=== PATIENT | female | born 1955 | race Caucasian/White ===

== ENCOUNTER 2017-11-26 18:10 | Inpatient (IN) | payer MEDICARE ==
[~2017-11-26] VITALS: Wt 61.4 kg
[2017-11-26 19:02] LABS: BASO % 0.3 % (0.0-2.0); EOS # 0.2 (0.0-0.7); EOS % 1.1 % (0-4.0); GRAN # 13.2 (1.4-6.5); HEMOGLOBIN 12.2 g/dl (12.5-16.0); LYMPH # 1.3 (1.2-3.4); LYMPH % 7.9 % (20.0-51.0); MEAN CELL VOLUME 87 fl (80.0-100.0); MEAN CORPUSCULAR HEMOGLOBIN 30 pg (27.0-31.0); MEAN CORPUSCULAR HGB CONC 35 g/dl (33.0-37.0); MEAN PLATELET VOLUME 10.9 fl (7.4-10.4); MONO # 1.2 (0.1-0.6); MONO % 7.3 % (1.7-9.3); PLATELET COUNT 233 K/mm3 (130-400); RED BLOOD COUNT 4.01 M/mm3 (4.10-5.30)
[2017-11-26 19:11] LABS: HEMATOCRIT 34.9 % (37.0-47.0); PROTHROMBIN TIME 11.6 SECONDS (9.7-12.8)
[2017-11-26 19:17] LABS: ALANINE AMINOTRANSFERASE 21 U/L (9-52); ALBUMIN 4.5 gm/dL (3.5-5.0); ALKALINE PHOSPHATASE 115 U/L (50-136); ANION GAP 14 mmol/L (7-16); AST,SGOT 22 U/L (15-37); BILIRUBIN,TOTAL 0.8 mg/dL (0.0-1.0); BLOOD UREA NITROGEN 33 mg/dL (7-17); CALCIUM 9.2 mg/dL (8.4-10.2); CARBON DIOXIDE 20 mmol/L (22-30); CHLORIDE 99 mmol/L (98-107); CREATININE, serum 2.12 mg/dL (0.52-1.25); GLUCOSE 96 mg/dL (74-106); POTASSIUM 3.5 mmol/L (3.4-5.0); SODIUM 133 mmol/L (137-145); TOTAL PROTEIN 7.9 gm/dL (6.4-8.2)
[2017-11-26 19:29] LABS: TROPONIN-I < 0.012 ng/mL (0.000-0.034)
[2017-11-26] MEDS ORDERED: PROTONIX 40MG T40 MG PO (20:20)
[2017-11-26] MEDS ORDERED: PAXIL40 MG PO (20:20)
[2017-11-26] MEDS ORDERED: NORVASC 5MG5 MG/TAB PO (20:21)
[2017-11-26] MEDS ORDERED: LIPITOR 40MG TA40 MG PO (20:21)
[2017-11-26] MEDS ORDERED: APRESOLINE 25MG25 MG PO (20:21)
[2017-11-26] MEDS ORDERED: ASPIRIN 81M81 MG/TA2 PO (20:22)
[2017-11-26] MEDS ORDERED: TYLENOL W/COD1 UDTAB PO (20:24)
[2017-11-26 22:49] VITALS: BP 170/105; PULSE 93; TEMP 100.7
[2017-11-27 02:50] VITALS: BP 123/74; PULSE 92; TEMP 100.5
[2017-11-27 06:38] LABS: BASO % 0.2 % (0.0-2.0); EOS # 0.1 (0.0-0.7); EOS % 0.6 % (0-4.0); GRAN # 11.5 (1.4-6.5); GRAN % 80.5 % (42.2-75.2); HEMOGLOBIN 11.2 g/dl (12.5-16.0); LYMPH # 1.6 (1.2-3.4); LYMPH % 11.3 % (20.0-51.0); MEAN CELL VOLUME 89 fl (80.0-100.0); MEAN CORPUSCULAR HEMOGLOBIN 30 pg (27.0-31.0); MEAN CORPUSCULAR HGB CONC 34 g/dl (33.0-37.0); PLATELET COUNT 217 K/mm3 (130-400); RED BLOOD COUNT 3.73 M/mm3 (4.10-5.30); REDCELL DISTRIBUTION WIDTH-CV 12.1 % (11.5-14.5)
[2017-11-27 06:40] LABS: HEMATOCRIT 33.3 % (37.0-47.0)
[2017-11-27 06:53] LABS: CALCIUM 8.8 mg/dL (8.4-10.2); CREATININE, serum 2.22 mg/dL (0.52-1.25); POTASSIUM 3.5 mmol/L (3.4-5.0)
[2017-11-27 08:48] VITALS: BP 123/72; PULSE 81; TEMP 98.4
[2017-11-27 12:05] VITALS: BP 121/53; PULSE 76; TEMP 98.4
[2017-11-27 15:46] VITALS: BP 149/70; PULSE 82; TEMP 98.2
[2017-11-27 19:24] VITALS: BP 143/83; PULSE 77; TEMP 97.8
[2017-11-27 23:11] VITALS: BP 160/85; PULSE 73; TEMP 98.4
[2017-11-28 03:43] VITALS: BP 136/70; PULSE 77; TEMP 98.1
[2017-11-28 07:24] LABS: CALCIUM 9.2 mg/dL (8.4-10.2); CREATININE, serum 2.24 mg/dL (0.52-1.25); POTASSIUM 4.2 mmol/L (3.4-5.0)
[2017-11-28 08:03] VITALS: BP 144/64; PULSE 72; TEMP 97.9
[2017-11-28 08:12] LABS: HEMOGLOBIN 11.6 g/dl (12.5-16.0); MEAN CELL VOLUME 88 fl (80.0-100.0); MEAN CORPUSCULAR HEMOGLOBIN 30 pg (27.0-31.0); MEAN CORPUSCULAR HGB CONC 34 g/dl (33.0-37.0); MEAN PLATELET VOLUME 11.5 fl (7.4-10.4); PLATELET COUNT 234 K/mm3 (130-400); REDCELL DISTRIBUTION WIDTH-CV 12.1 % (11.5-14.5)
[2017-11-28 08:14] LABS: HEMATOCRIT 34.4 % (37.0-47.0)
[2017-11-28 08:48] LABS: BAND 10 % (0-10); LYMPHOCYTE 7 % (20.0-51.0); NEUTROPHILS 82 % (42.0-75.2)
[2017-11-28 08:50] LABS: PLATELET ESTIMATE NORMAL (NORMAL)
[2017-11-28 08:52] LABS: BURR CELLS 1+
[2017-11-28 11:41] VITALS: BP 146/69; PULSE 78; TEMP 97.8
[2017-11-28 15:53] VITALS: BP 138/81; PULSE 85; TEMP 98.2
== END 2017-11-28 16:34 | disposition home or self-care (01) | DRG 194 ==
LOC: COL.ER 18:10 → MEDICAL 19:43
PROVIDERS: Emergency Medicine; Internal Medicine Nephrology
DX: J18.9 Pneumonia, unspecified organism (principal); J44.0 Chronic obstructive pulmonary disease with (acute) lower respiratory infection; N18.4 Chronic kidney disease, stage 4 (severe); J44.1 Chronic obstructive pulmonary disease with (acute) exacerbation; I12.9 Hypertensive chronic kidney disease with stage 1 through stage 4 chronic kidney disease, or unspecified chronic kidney disease; E11.22 Type 2 diabetes mellitus with diabetic chronic kidney disease; F17.210 Nicotine dependence, cigarettes, uncomplicated; I70.1 Atherosclerosis of renal artery; I48.2 Chronic atrial fibrillation
CPT/HCPCS: OP; J0456; J0696; J1956; J2405; J2920; J7030; J7050

== ENCOUNTER → 2017-12-31 | Outpatient (CLI) | payer MEDICARE ==
[~2017-12-31] MED LIST: APRESOLINE 25MG25 MG PO; ASPIRIN 81M81 MG/TA2 PO; LIPITOR 40MG TA40 MG PO; NORVASC 5MG5 MG/TAB PO; PAXIL40 MG PO; PROTONIX 40MG T40 MG PO; TYLENOL W/COD1 UDTAB PO
== END ==
LOC: MC.RAD 10:00
DX: R92.0 Mammographic microcalcification found on diagnostic imaging of breast (principal); Z98.82 Breast implant status

== ENCOUNTER 2019-09-08 06:13 | Day surgery (SDC) | payer MEDICARE, OTHER ==
[2019-09-08] VITALS (7 sets, daily range): BP systolic 95–148; BP diastolic 51–78; PULSE 54–64; TEMP 97.4–97.8
[~2019-09-08] VITALS: Ht 165.1 cm; Wt 70.1 kg
[2019-09-08] MEDS ORDERED: TOPROL XL100 MG PO (07:15)
[2019-09-08] MEDS ORDERED: ZOLOFT 100MG100 MG PO (07:17)
[2019-09-08] MEDS ORDERED: KLONOPIN 0.5MG0.5 MG PO (07:18)
[2019-09-08] MEDS ORDERED: CEPHALEXIN500 M1 PO (07:20)
--- NOTE | 2019-09-08 09:08 | NUR ---
PATIENT BROUGHT BACK TO BAY 6 ACCOMPANIED BY OR STAFF. PATIENT TALKING WITH STAFF BUT STATES THAT SHE IS DROWSY. MONITORS APPLIED. PATIENT ON ROOM AIR. VSS. VERBAL REPORT RECEIVED.
--- NOTE | 2019-09-08 09:16 | NUR ---
BLOOD PRESSURE DECREASED TO 95/63. PATIENT CLOSES EYES BUT DOES AWAKE AND TALK WITH SPOKEN TO. WILL CONTINUE TO MONITOR VITALS. PATIENT GIVEN COFFEE TO DRINK. DENIES DISCOMFORT AND NAUSEA.
--- NOTE | 2019-09-08 09:30 | NUR ---
VSS. PATIENT GIVEN MUFFIN TO EAT. CONTINUES TO DENY DISCOMFORT AND NAUSEA.
--- NOTE | 2019-09-08 09:46 | NUR ---
VSS. NO PROBLEMS WITH EATING MUFFING. NO NAUSEA OR DISCOMFORT. INCISION TO RIGHT HIP CLEAN, DRY AND INTACT. HECTOR SET INTACT.
--- NOTE | 2019-09-08 10:10 | NUR ---
VSS. PATIENT AMBULATES TO BATHROOM WITH STEADY GAIT. PATIENT VOIDS WITHOUT PROBLEMS. PATIENT DENIES PROBLEMS. PATIENT'S SISTER CALLED AND UPDATED ON PATIENT STATUS AND IS DRIVING TO PICKUP PATIENT.
--- NOTE | 2019-09-08 10:45 | NUR ---
VSS. IV SITE DC'D INTACT AND PRESSURE APPLIED. PATIENT CHANGED TO STREET [facility]. DISCHARGE INSTRUCTIONS GIVEN VERBALLAY AND WRITTEN. DISCHARGE PACKET PROVIDED. QUESTIONS ANSWERED AND PATIENT VOICED UNDERSTANDING. PATIENT GIVEN [employer] INFORMATION AND BOX. PATIENT INSTRUCTED OF REP PHONE NUMBER IN SIDE LID OF BOX. [id number] DISCHARGED PER W/C TO [facility]. PATIENT'S SISTER DRIVING.
== END 2019-09-08 10:50 | disposition home or self-care (01) ==
LOC: SDCO 06:13
DX: R32 Unspecified urinary incontinence (principal); R39.15 Urgency of urination; R35.0 Frequency of micturition; E11.22 Type 2 diabetes mellitus with diabetic chronic kidney disease; I12.9 Hypertensive chronic kidney disease with stage 1 through stage 4 chronic kidney disease, or unspecified chronic kidney disease; N18.4 Chronic kidney disease, stage 4 (severe); Z92.89 Personal history of other medical treatment; E78.00 Pure hypercholesterolemia, unspecified; I70.1 Atherosclerosis of renal artery; J44.9 Chronic obstructive pulmonary disease, unspecified; F32.9 Major depressive disorder, single episode, unspecified; F41.9 Anxiety disorder, unspecified; F17.210 Nicotine dependence, cigarettes, uncomplicated; Z79.82 Long term (current) use of aspirin; Z79.899 Other long term (current) drug therapy; Z86.73 Personal history of transient ischemic attack (TIA), and cerebral infarction without residual deficits; Z80.1 Family history of malignant neoplasm of trachea, bronchus and lung; Z80.0 Family history of malignant neoplasm of digestive organs; Z88.1 Allergy status to other antibiotic agents; Z88.8 Allergy status to other drugs, medicaments and biological substances; Z96.0 Presence of urogenital implants
CPT/HCPCS: C1767; C1778; C1787; C1894; J0690; J2405; J2704; J3010; J7030

== ENCOUNTER 2019-11-12 07:15 | Day surgery (SDC) | payer MEDICARE, OTHER ==
[~2019-11-12] VITALS: Ht 165.1 cm; Wt 70.5 kg
[~2019-11-12 07:15] MED LIST changes: +CEPHALEXIN500 M1 PO; +KLONOPIN 0.5MG0.5 MG PO; +TOPROL XL100 MG PO; +ZOLOFT 100MG100 MG PO
[2019-11-12 07:49] VITALS: BP 183/86; PULSE 54; TEMP 97.4
[2019-11-12] MEDS ORDERED: ASPIRIN 32325 MG/TAB PO (08:19)
[2019-11-12 08:45] VITALS: BP 137/100; PULSE 62; TEMP 98.2
[2019-11-12 09:00] VITALS: BP 141/72; PULSE 55
[2019-11-12 09:15] VITALS: BP 137/85; PULSE 54
== END 2019-11-12 09:55 | disposition home or self-care (01) ==
LOC: SDCO 07:15
DX: K22.2 Esophageal obstruction (principal); K21.0 Gastro-esophageal reflux disease with esophagitis; K44.9 Diaphragmatic hernia without obstruction or gangrene; L44.0 Pityriasis rubra pilaris; E11.22 Type 2 diabetes mellitus with diabetic chronic kidney disease; I12.9 Hypertensive chronic kidney disease with stage 1 through stage 4 chronic kidney disease, or unspecified chronic kidney disease; N18.4 Chronic kidney disease, stage 4 (severe); J44.9 Chronic obstructive pulmonary disease, unspecified; I48.91 Unspecified atrial fibrillation; F41.9 Anxiety disorder, unspecified; F32.9 Major depressive disorder, single episode, unspecified; Z86.73 Personal history of transient ischemic attack (TIA), and cerebral infarction without residual deficits; F17.210 Nicotine dependence, cigarettes, uncomplicated; Z88.8 Allergy status to other drugs, medicaments and biological substances; Z79.82 Long term (current) use of aspirin; Z79.899 Other long term (current) drug therapy; Z88.1 Allergy status to other antibiotic agents; Z96.89 Presence of other specified functional implants; Z90.710 Acquired absence of both cervix and uterus; Z91.048 Other nonmedicinal substance allergy status; Z80.0 Family history of malignant neoplasm of digestive organs
CPT/HCPCS: C1726; J2704; J7030

== ENCOUNTER → 2020-06-23 | Outpatient (CLI) | payer MEDICARE, OTHER ==
[~2020-06-23] MED LIST changes: +ASPIRIN 32325 MG/TAB PO; +KLONOPIN 1MG1 MG PO; +ROXICODONE 55 MG/TAB PO
== END ==
LOC: COL.RAD 13:30
DX: M47.816 Spondylosis without myelopathy or radiculopathy, lumbar region (principal); M48.061 Spinal stenosis, lumbar region without neurogenic claudication; M51.36 Other intervertebral disc degeneration, lumbar region

== ENCOUNTER 2020-09-06 12:44 | Outpatient (CLI) | payer MEDICARE, OTHER ==
[~2020-09-06] VITALS: Ht 165.1 cm; Wt 71.5 kg
[~2020-09-06 12:44] MED LIST changes: -ROXICODONE 55 MG/TAB PO
[2020-09-06] MEDS ORDERED: ROXICODONE 55 MG/TAB PO (12:59)
[2020-09-06 13:00] VITALS: BP 189/92; PULSE 55
[2020-09-06 14:30] VITALS: BP 170/89; PULSE 62
[2020-09-06 14:45] VITALS: BP 157/80; PULSE 62
[2020-09-06 15:00] VITALS: BP 155/80; PULSE 60
[2020-09-06 15:15] VITALS: BP 163/91; PULSE 62
[2020-09-06 15:30] VITALS: BP 157/90; PULSE 63
--- NOTE | 2020-09-06 15:58 | NUR ---
Discharge instructions given to pt.Pt verbalizes understanding.
--- NOTE | 2020-09-06 16:22 | NUR ---
Pt escorted out via wheelchair by this nurse.
== END 2020-09-06 16:23 | disposition home or self-care (01) ==
LOC: COL.RAD 12:44
DX: M48.061 Spinal stenosis, lumbar region without neurogenic claudication (principal); M47.816 Spondylosis without myelopathy or radiculopathy, lumbar region; M19.90 Unspecified osteoarthritis, unspecified site
CPT/HCPCS: Q9965

== ENCOUNTER → 2021-01-09 | Outpatient (CLI) | payer MEDICARE, OTHER ==
[~2021-01-09] MED LIST changes: +ROXICODONE 55 MG/TAB PO
== END ==
LOC: MHCPAIN 10:00
DX: M47.816 Spondylosis without myelopathy or radiculopathy, lumbar region (principal); M54.16 Radiculopathy, lumbar region; M53.3 Sacrococcygeal disorders, not elsewhere classified; M48.062 Spinal stenosis, lumbar region with neurogenic claudication
CPT/HCPCS: G0463

== ENCOUNTER → 2021-01-18 | Outpatient (CLI) | payer MEDICARE, OTHER | LOC: MHCPAIN 09:38 | DX: M47.817 Spondylosis without myelopathy or radiculopathy, lumbosacral region (principal); M53.3 Sacrococcygeal disorders, not elsewhere classified; M54.16 Radiculopathy, lumbar region | CPT/HCPCS: J1100; Q9967 ==

== ENCOUNTER → 2021-02-06 | Outpatient (CLI) | payer MEDICARE, OTHER | LOC: MHCPAIN 09:50 | DX: M54.16 Radiculopathy, lumbar region (principal); M53.3 Sacrococcygeal disorders, not elsewhere classified; G89.29 Other chronic pain; F17.210 Nicotine dependence, cigarettes, uncomplicated | CPT/HCPCS: G0463 ==

== ENCOUNTER 2023-04-16 10:16 | Outpatient (CLI) | payer MEDICARE, OTHER ==
[~2023-04-16] VITALS: Ht 165.2 cm; Wt 57.9 kg
[~2023-04-16 10:16] MED LIST changes: -NORVASC 5MG5 MG/TAB PO; +NORVASC2.5 MG PO; +PERCOCET 325 MG1 TA3 PO; -ROXICODONE 55 MG/TAB PO; +TOPROL XL 50MG50 MG PO
[2023-04-16 11:30] VITALS: BP 172/82; PULSE 50; TEMP 98.6
[2023-04-16 12:27] VITALS: BP 194/85; PULSE 56
--- NOTE | 2023-04-16 12:29 | NUR ---
SEE MERGE FOR MEDICATIONS, VITAL SIGNS AND INTERVENTIONS.
[2023-04-16 14:05] VITALS: BP 151/81; PULSE 63
[2023-04-16 14:15] VITALS: BP 149/102; PULSE 62
--- NOTE | 2023-04-16 14:16 | NUR ---
Pt returned from procedure.Report santosh Diaz RN.
[2023-04-16 14:30] VITALS: BP 156/82; PULSE 61
--- NOTE | 2023-04-16 14:55 | NUR ---
Per Dr Guzmán ok to dc patient so she may go to dialysis.Discharge instructions given to pt.Pt verbalizes understanding.Pt escorted out via wheelchair by this nurse.
== END 2023-04-16 16:09 ==
LOC: COL.CAR 10:16
DX: T82.590A Other mechanical complication of surgically created arteriovenous fistula, initial encounter (principal); I12.0 Hypertensive chronic kidney disease with stage 5 chronic kidney disease or end stage renal disease; N18.6 End stage renal disease; F17.200 Nicotine dependence, unspecified, uncomplicated
CPT/HCPCS: J1644; J2250; J3010

== ENCOUNTER → 2024-01-06 | Outpatient (CLI) | payer MEDICARE, OTHER ==
[~2024-01-06] MED LIST changes: +ABILIFY2 MG PO; +AURYXIA1 GM PO; +Albuterol 0.083% Neb Soln 2.5 MG/3 ML UD IH ONE; +COZAAR 50MG50 MG/TAB PO; +LASIX 20MG TABL20 MG PO; +MASON NATURAL2000 IU PO; +NORCO 325 MG-51 TAB PO
== END ==
LOC: COL.CARD 14:22
DX: I36.1 Nonrheumatic tricuspid (valve) insufficiency (principal); F17.210 Nicotine dependence, cigarettes, uncomplicated